=== PATIENT | male | born 1995 | race Asian ===

== ENCOUNTER 2016-10-26 16:27 | Emergency (ER) | payer OTHER ==
[2016-10-26 16:59] VITALS: BP 132/67; PULSE 82; RESP 16; TEMP 98.9; O2SAT 96
--- NOTE | 2016-10-26 17:02 | UCPHY ---
H & P Time Seen by Provider: 10/26/16 16:46 Patient Type: New HPI/ROS: CHIEF COMPLAINT: URI symptoms times 10 days HISTORY OF PRESENT ILLNESS: 21-year-old immunocompetent male, nonsmoker, complaining cough, congestion times 10 days. No dyspnea. No chest pain. No back pain. No fever no chills. No nuchal rigidity. No urinary complaints. No abdominal pain. No nausea or vomiting. REVIEW OF SYSTEMS: A ten point review of systems was performed and is negative with the exception of the items mentioned in the HPI PAST MEDICAL & SURGICAL HISTORY: No pertinent medical or surgical history SOCIAL HISTORY: Nonsmoker PHYSICAL EXAM (Prior to examination, patient consented to physical exam, hands were washed and my usual and customary physical exam procedures followed) 1) GENERAL: Well-developed, well-nourished, alert and oriented. Appears to be in no acute distress. 2) HEAD: Normocephalic, atraumatic 3) HEENT: Pupils equal, round, reactive to light bilaterally. Sclera anicteric. Nasopharynx, oropharynx, clear, no lesions. Tonsillar enlargement or tonsillar exudate Ears bilaterally with normal tympanic membranes. 4) NECK: Full range of motion, no meningeal signs. 5) LUNGS: Clear auscultation bilaterally, no wheezes, no rhonchi, no retractions. 6) HEART: Regular rate and rhythm, no murmur, no heave, no gallop. 7) ABDOMEN: No guarding, no rebound, no focal tenderness, negative McBurney's, negative Myrick's, negative Rovsing's, negative peritoneal sign, 8) MUSCULOSKELETAL: Moving all extremities, no focal areas of tenderness, no obvious trauma. No peripheral edema or discoloration. 9) BACK: No CVA tenderness, . 10) SKIN: No rash, no petechiae. 11) Psychiatric: Patient is oriented X 3, there is no agitation. DIFFERENTIAL DIAGNOSIS: no particular include but not limited to strep pharyngitis, influenza, pneumonia, bronchitis Smoking Status: Never smoked Constitutional: Initial Vital Signs Temperature (C) 37.2 C 10/26/16 16:57 Heart Rate 82 10/26/16 16:57 Respiratory Rate 16 10/26/16 16:57 Blood Pressure 132/67 H 10/26/16 16:57 O2 Sat (%) 96 10/26/16 16:57 O2 Delivery Mode Room Air Allergies/Adverse Reactions: No Known Allergies Allergy (Unverified 10/26/16 16:59) Home Medications: Medication Instructions Recorded AZITHROMYCIN [Z-PACK] 500 mg PO DAILY #1 packet 10/26/16 Albuterol [Proventil Inhaler HFA 1 - 2 puffs IH Q4PRN PRN #1 mdi 10/26/16 (*)] Benzonatate [Tessalon Pearles (RX)] 200 mg PO TID PRN #15 cap 10/26/16 MDM/Departure - MDM ED Course/Re-evaluation: No clinical evidence of strep pharyngitis. Doubt meningitis. Doubt sepsis. Given the longevity of his symptoms, I cannot rule out secondary bacterial infection was more than likely an initial viral etiology. I do think a trial of antibiotics is indicated therefore. He has been given my usual customary URI precautions and instructions. - Depart Disposition: Home, Routine, Self-Care Clinical Impression: Upper respiratory infection Qualifiers: URI type: unspecified URI Qualifier Code: (J06.9) Acute upper respiratory infection, unspecified Condition: Good Instructions: Upper Respiratory Infection (ED) Additional Instructions: Go to the emergency department if you develop shortness of breath neck pain or stiffness, or any other symptoms that concern you Prescriptions: Albuterol [Proventil Inhaler HFA (*)] 1 - 2 puffs IH Q4PRN PRN #1 mdi PRN Reason: Cough, Moderate Benzonatate [Tessalon Pearles (RX)] 200 mg PO TID PRN #15 cap PRN Reason: Cough, Moderate AZITHROMYCIN [Z-PACK] 500 mg PO DAILY #1 packet Referrals: Harry Hankins [Primary Care Provider] - 2-3 days, call for appt. - PQRS PQRS Measurement: Not applicable
== END 2016-10-26 17:22 | disposition home or self-care (01) ==
LOC: CED 16:27
DX: J06.9 Acute upper respiratory infection, unspecified (principal)
CPT/HCPCS: 87880-PO; 99202-PO; G0463-PO

== ENCOUNTER → 2017-06-26 | Outpatient (CLI) | payer OTHER | LOC: CIMAGING 09:49 | PROVIDERS: ATTEND Family Medicine | DX: M25.532 Pain in left wrist (principal) | CPT/HCPCS: 73110-PO ==